=== PATIENT | male | born 1960 | race Caucasian/White ===

== ENCOUNTER 2017-02-22 09:16 | Emergency (ER) | payer SELFPAY ==
[~2017-02-22] VITALS: Ht 180.3 cm; Wt 80.0 kg
[2017-02-22 09:31] VITALS: Ht 180.3 cm; Wt 80.0 kg
[2017-02-22] MEDS ORDERED: ALPRAZOLAM 1 MG TAB PO ONE (10:30)
--- NOTE | 2017-02-22 10:36 | ERD ---
ER Documentation Chief Complaint Date/Time DATE: 02/22/17 TIME: 10:31 Chief Complaint PT needs meds refill, used heroin 2 days ago. HPI Patient is a 56-year-old female with no past medical history who presents to the ED for medication refill of Xanax. Patient states that he takes Xanax 2 mg in the morning and 2 mg at night and has been taking this medication for the last year. He states that he ran out of his medication and would like a refill. He states that he has an appointment in 2 weeks at the [facility] would like a supply to last him until then. He states that he used heroin 2 days ago and would like to prevent any withdrawal symptoms. He states that he feels slightly shaky. He denies sweating, vomiting, dizziness. He states that his mom is driving him today. He denies other drug use. Denies fever or chills. Denies abdominal pain. Denies headache or dizziness. He states that he does have a history of anxiety. He denies any hallucinations or suicidal ideations or homicidal ideations. ROS All systems reviewed and are negative except as per history of present illness. PMhx/Soc Medical and Surgical Hx: pt denies Medical Hx, pt denies Surgical Hx Hx Alcohol Use: Yes Hx Substance Use: Yes (heroin) Hx Tobacco Use: Yes Smoking Status: Former smoker Physical Exam Vitals Vital Signs Date Time Temp Pulse Resp B/P Pulse Ox O2 Delivery O2 Flow Rate FiO2 02/22/17 09:31 98.8 103 18 177/104 99 Physical Exam GENERAL: Well-developed, well-nourished male. Appears in no acute distress. Speaking clearly and not agitated HEAD: Normocephalic, atraumatic. EYES: Pupils are equally reactive bilaterally. EOMs grossly intact. No conjunctival erythema. ENT: Moist mucous membranes. No uvula deviation. No kissing tonsils. No exudates. NECK: Supple. No lymphadenopathy or thyromegaly. No meningismus. negative kernig. negative brudinski. LUNG: Clear to auscultation bilaterally. No rhonchi, wheezing, rales or coarse breath sounds. HEART: Regular rate and rhythm. No murmurs, rubs or gallops. ABDOMEN: No scars, ecchymosis or rashes noted. Soft, nontender, and nondistended. Positive bowel sounds in all four quadrants. No rebound tenderness , no guarding. (-) McBurneys point tenderness. No CVA tenderness. BACK: No midline tenderness. Extremities: Equal pulses bilaterally. No peripheral clubbing, cyanosis or edema. No unilateral leg swelling. NEUROLOGIC: Alert and oriented. Moving all four extremities. 5/5 strength in all extremities. Normal speech. Steady gait. SKIN: Normal color. Warm and dry. No rashes or lesions. Capillary refill < 2 seconds Results 24 hrs Current Medications Medications (Trade) Dose Ordered Sig/Miles Route PRN Reason Start Time Stop Time Status Last Admin Dose Admin Alprazolam (Xanax) 1 mg ONCE ONCE PO 02/22/17 10:30 02/22/17 10:31 DC 02/22/17 10:12 Procedures/MDM ER COURSE: I kept the patient and/or family informed of laboratory and diagnostic imaging results throughout the emergency room course. MEDICAL DECISION MAKING: This is a 56-year-old male who presents with medication refill of Xanax. Vital signs were reviewed. Patient is afebrile. Patient is not hypoxic. Patient has a pulse of 103 and a blood pressure of 177/104 which is likely related to heroin use one half days ago. I consulted with Dr. Priyanka Sawant my supervising physician regarding this patient who stated that no prescription for Xanax will be given to patient outpatiently. Patient can receive 1 dose of Xanax here in the ED. patient to follow-up with his primary care for management of his anxiety and refill. I explained to patient that in the ER we do not manage anxiety or other issues relating to benzodiazepines or narcotic medication. Patient fully understood and stated that he will follow-up with his primary care today. He states that he will go to [facility] as a walk-in patient for a refill. All questions were answered. MEDICATION Xanax 1 mg p.o. Tolerated well with no adverse reaction. DISCHARGE: At this time, patient is stable for discharge and outpatient management with no new complaints during the ER course. Patient was sent home with instructions to return to his primary care.. Patient will be discharged home with instructions to recheck for new or worsening symptoms such as fever, nausea, weakness, LOC and to follow up with primary care in the next 1-2 days. Patient was advised to return to the ER for any new or worsening symptoms. Plan was discussed and patient and/or family understands and agrees. Home instructions were given. Departure Diagnosis: Primary Impression: Encounter for medication refill Condition: Stable Patient Instructions: Taking Medicine Safely Referrals: [facility] YOU HAVE RECEIVED A MEDICAL SCREENING EXAM AND THE RESULTS INDICATE THAT YOU DO NOT HAVE A CONDITION THAT REQUIRES URGENT TREATMENT IN THE EMERGENCY DEPARTMENT. FURTHER EVALUATION AND TREATMENT OF YOUR CONDITION CAN WAIT UNTIL YOU ARE SEEN IN YOUR DOCTORS OFFICE WITHIN THE NEXT 1-2 DAYS. IT IS YOUR RESPONSIBILITY TO MAKE AN APPOINTMENT FOR FOLOW-UP CARE. IF YOU HAVE A PRIMARY DOCTOR --you should call your primary doctor and schedule an appointment IF YOU DO NOT HAVE A PRIMARY DOCTOR YOU CAN CALL OUR PHYSICIAN REFERRAL HOTLINE AT IF YOU CAN NOT AFFORD TO SEE A PHYSICIAN YOU CAN CHOSE FROM THE FOLLOWING [facility] [address] [facility] [address] [facility] [address] [facility] [address] [facility] [address] [facility] [facility] [address] Additional Instructions: Call your primary care doctor TOMORROW for an appointment during the next 1-2 days.See the doctor sooner or return here if your condition worsens before your appointment time. CARLTON DEWITT PA-C February 22, 2017 10:36
== END 2017-02-22 10:07 | disposition left against medical advice (07) ==
LOC: FTE 09:16
DX: Z76.0 Encounter for issue of repeat prescription (principal); Z87.891 Personal history of nicotine dependence
CPT/HCPCS: 99283